=== PATIENT | male | born 1970 | race Caucasian/White ===

== ENCOUNTER 2017-03-23 11:23 | Inpatient (IN) | payer OTHER ==
[2017-03-22 14:59] VITALS: Ht 180.3 cm; Wt 104.2 kg
[~2017-03-23] VITALS: Ht 180.3 cm; Wt 104.2 kg
[2017-03-23] VITALS (12 sets, daily range): BP systolic 102–142; BP diastolic 52–81; PULSE 75–94; RESP 11–17
[~2017-03-23 11:23] MED LIST: AMLO-147 PO; ARIP15TA2 PO; CEFAZOLIN 1 GM INJ ONE; DULO60CA6 PO; OXYC15TA PO; PRAV40TA76 PO; TRAZ300T15 PO
[2017-03-23] MEDS ORDERED: GELATIN SIZE 100 SPONGE ONE ×2 (13:18→17:46)
[2017-03-23] MEDS ORDERED: THROMBIN 5000 UNIT VIAL ONE ×3 (13:18→17:46)
[2017-03-23] MEDS ORDERED: CEFAZOLIN 1 GM INJ ONE (13:18)
[2017-03-23] MEDS ORDERED: HEPARIN 1000 UNITS/ML 10 ML INJ ONE (13:19)
[2017-03-23] MEDS: NICOTINE (21 MG/24 HR) PATCH TRANSDERM SCH (14:43)
--- NOTE | 2017-03-23 14:45 | HPN ---
Date/Time of Note Date/Time of Note DATE: 03/23/17 TIME: 14:43 Interval H&P Admission Note Pt. seen H&P reviewed: No system changes Neurosurgery Preop Note Extensive d/w patient at bedside about all available options including surgery vs no surgery. Overall risk/complications 3-5% overall as thoroughly discussed in my preop consent form. All questions answered and no guarantees given. pt has agreed to Staged surgery . Anterior approach L3-S1 today with Posterior fixation to follow in few days. Per OR, next available time would be Sunday at 0730. WILY ANGEL MD Mar 23, 2017 14:45
[2017-03-23] MEDS ORDERED: PROPOFOL 20 ML ONE (16:06)
[2017-03-23] MEDS ORDERED: LIDOCAINE 2% (SDV) 5 ML INJ ONE (16:06)
[2017-03-23] MEDS ORDERED: GLYCOPYRROLATE 0.4 MG INJ ONE ×3 (16:06→18:27)
[2017-03-23] MEDS ORDERED: NEOSTIGMINE 3 MG/3 ML SYRINGE ONE ×2 (16:06→18:27)
[2017-03-23] MEDS ORDERED: SUCCINYLCHOLINE CHLORIDE 100 MG/5 ML SYG IV ONE (16:06)
[2017-03-23] MEDS ORDERED: ROCURONIUM 50 MG INJ ONE ×3 (16:06→17:21)
[2017-03-23] MEDS ORDERED: MEPERIDINE 100 MG INJ ONE (16:06)
[2017-03-23] MEDS ORDERED: LABETALOL HCL 20MG INJ ONE (17:00)
[2017-03-23] MEDS ORDERED: FUROSEMIDE 20 MG INJ ONE (17:00)
[2017-03-23] MEDS ORDERED: hydrALAzine 20 MG INJ ONE (17:04)
[2017-03-23] MEDS ORDERED: NACL 0.9% 3 ML SYG IV SCH (17:30)
[2017-03-23] MEDS: NS + KCL 20 MEQ 1,000 ML IV SCH (17:30)
[2017-03-23] MEDS ORDERED: NALOXONE (0.4 MG/ML) INJ IV PRN (17:30)
--- NOTE | 2017-03-23 19:25 | OPPN ---
Date/Time of Note Date/Time of Note DATE: 03/23/17 TIME: 19:20 Operative Report Preoperative Diagnosis Mechanical LBP, LE radiculopathy Postoperative Diagnosis same Operation/Procedure Performed Anterior Lumbar Interbody decompression and fusion Surgeon see signature line market research assistant Jocelyn Second assist: GRETA SOLER NP Anesthesia: general Estimated blood loss: 150 - 200 ml's Transfusion Required none Specimen Disc and bone Grafts/Implants Nuvasive PEEK cages, screws, allograft bone Complications none WILY ANGEL MD Mar 23, 2017 19:25
[2017-03-23] MEDS ORDERED: DIPHENHYDRAMINE 50 MG INJ IV PRN (19:30)
[2017-03-23] MEDS ORDERED: LABETALOL HCL 20MG INJ IV PRN (19:30)
[2017-03-23] MEDS ORDERED: METOCLOPRAMIDE 10 MG INJ IV PRN (19:30)
[2017-03-23] MEDS ORDERED: morphine 10 MG INJ IV PRN (19:30)
[2017-03-23] MEDS ORDERED: morphine 2 MG INJ IV PRN (19:30)
[2017-03-23] MEDS ORDERED: ONDANSETRON 4 MG INJ IV PRN (19:30)
[2017-03-23] MEDS ORDERED: MEPERIDINE 25 MG INJ IV PRN (19:30)
[2017-03-23] MEDS ORDERED: FENTAnyl 50 MCG/ML VIAL IV PRN ×2 (19:30)
[2017-03-23] MEDS ORDERED: morphine 4 MG/ML VIAL IV PRN (19:30)
[2017-03-23] MEDS ORDERED: hydrALAzine 20 MG INJ IV PRN (19:30)
[2017-03-23] MEDS ORDERED: FENTAnyl 50 MCG/ML VIAL ONE ×2 (19:44→20:00)
[2017-03-23] MEDS: FENTAnyl 50 MCG/ML VIAL IV PRN ×4 (20:07→21:02)
[2017-03-23] MEDS: HYDROmorphONE 0.2 MG/ML PCA IV SCH (20:35)
[2017-03-23] MEDS: CEFAZOLIN 1 GM/50 ML (PMX) 50 ML IVPB SCH (21:06)
[2017-03-23 23:09] LABS: INR 0.99; PROTIME 13.2 Sec (11.9-14.9)
[2017-03-24] VITALS (37 sets, daily range): BP systolic 88–174; BP diastolic 45–81; PULSE 68–107; RESP 8–22
[2017-03-24] MEDS: NS + KCL 20 MEQ 1,000 ML IV SCH ×3 (03:30→21:48)
[2017-03-24] MEDS: HYDROmorphONE 0.2 MG/ML PCA IV SCH ×2 (03:59→21:46)
[2017-03-24] MEDS: traZODone 100 MG TAB PO SCH ×2 (04:08→21:47)
[2017-03-24 05:18] LABS: HEMATOCRIT 39.5 % (42.0-52.0); HEMOGLOBIN 12.9 g/dl (14.0-18.0)
[2017-03-24 05:52] LABS: CALCIUM 8.6 mg/dl (8.4-10.2); CREATININE 0.9 mg/dl (0.61-1.24); POTASSIUM 3.7 mmol/L (3.5-5.1)
[2017-03-24] MEDS: CEFAZOLIN 1 GM/50 ML (PMX) 50 ML IVPB SCH ×3 (06:01→21:47)
--- NOTE | 2017-03-24 06:52 | OPR ---
DATE OF OPERATION: PREOPERATIVE DIAGNOSIS: Degenerative disk disease, lumbosacral spine. POSTOPERATIVE DIAGNOSIS: Degenerative disk disease, lumbosacral spine. PROCEDURE: 1. Anterior retroperitoneal exposure and interbody fusion L3 to L4. 2. Anterior retroperitoneal exposure and interbody fusion L4 to L5. 3. Anterior retroperitoneal exposure interbody fusion L5 to S1. 4. Unusually difficult operation secondary to morbid obesity. SURGEON: Robel Bhatti MD. CO-SURGEON: Bambi Colorado MD. ANESTHESIA: General. ESTIMATED BLOOD LOSS: 150 mL. CONSENT: Risks, benefits, complications, alternative therapies explained to the patient and the [facility], consent obtained. OPERATIVE TECHNIQUE: The patient was placed in supine position, prepped and draped in usual sterile fashion, 1% lidocaine was used throughout the operation for local anesthesia. A 12-cm incision was made left lower quadrant, oblique fashion below the umbilicus. Incision was taken down to the subc utaneous tissue which was then opened using electrocautery. Left anterior rectus sheath was opened in the direction of the wound. Posterior rectus sheath was opened superiorly about 4 cm. Retroperi toneal space was entered. The patient appeared to be very obese which added at least 45 minutes to the duration of the operation and complexity of the operation. Bookwalter retractor was placed retr acting the bowel contents to the right, left rectus muscle to left. We ligated the middle sacral ar minid and vein, left iliolumbar artery and vein and left lowest segmental artery and vein on the left side. Exposure for L4 to L5 and L3 to L4 was obtained by retracting the left iliac artery and vein and vena cava and aorta to the right, exposure for 5 and 1 was obtained between the right and left common iliac artery and vein. After all the diskectomy and the placement of the new cage was done, x-rays were satisfactory read by Dr. Colorado. No evidence of any bleeding was noted. Needle counts a nd sponge counts count was correct. The posterior rectus sheath was closed using an 0 Vicryl suture in running fashion. The anterior rectus sheath was closed using #1 Vicryl suture in running fashio n with interrupted sutures in the middle. The wound was irrigated and closed in 2 layers of 2-0 Munir ryl suture for subQ and Steri-Strips for the skin. The patient tolerated procedure well. Dictated By: ROBEL BHATTI MD FM/NTS Conf#: [id number] DID#: [id number] CC: BAMBI COLOARDO MD;*EndCC*
[2017-03-24] MEDS ORDERED: METOPROLOL 5 MG INJ ONE (07:00)
[2017-03-24] MEDS ORDERED: CEFAZOLIN 1 GM INJ ONE (07:00)
[2017-03-24] MEDS ORDERED: ROPIVACAINE 0.5 % 30 ML VIAL ONE ×2 (07:09→08:20)
[2017-03-24] MEDS ORDERED: GELATIN SIZE 100 SPONGE ONE (07:09)
[2017-03-24] MEDS ORDERED: THROMBIN 5000 UNIT VIAL ONE (07:10)
[2017-03-24] MEDS ORDERED: POLYMYXIN/BACITRACIN 1L IRRIG ONE (07:12)
[2017-03-24] MEDS: NICOTINE (21 MG/24 HR) PATCH TRANSDERM SCH (07:36)
[2017-03-24] MEDS ORDERED: PROPOFOL 20 ML ONE ×2 (07:38→08:53)
[2017-03-24] MEDS ORDERED: HYDROmorphONE 2 MG/ML SYG ONE (07:38)
[2017-03-24] MEDS ORDERED: ONDANSETRON 4 MG INJ ONE (07:38)
[2017-03-24] MEDS ORDERED: ROCURONIUM 50 MG INJ ONE ×2 (07:38→08:46)
[2017-03-24] MEDS ORDERED: METOCLOPRAMIDE 10 MG INJ ONE (07:38)
[2017-03-24] MEDS ORDERED: MIDAZOLAM 1 MG/ML 2 ML INJ ONE (07:39)
--- NOTE | 2017-03-24 07:40 | HPN ---
Date/Time of Note Date/Time of Note DATE: 03/24/17 TIME: 07:37 Interval H&P Admission Note Neurosurgery Preop Note S: s/p ALIF L3-S1. POD #1 Pt did well overnight w/o new weakness and improved LE radiculopathy surgical site CDI Extensive d/w patient about posterior fixation and possible foraminotomies to L4 -5 level. All risk/complications 3-5% overall thoroughly discussed. All questions answered and no guarantees given. Dispo: ICU post WILY ANGEL MD Mar 24, 2017 07:40
--- NOTE | 2017-03-24 08:33 | RADRPT ---
PROCEDURE: Lumbar spine x-ray and fluoroscopy CLINICAL INDICATION: Lumbar spine surgical procedure TECHNIQUE: 11 intraoperative x-ray views of the lumbar spine are available for review. COMPARISON: None available FINDINGS: Postsurgical changes of the lumbar spine are identified. Intraoperative imaging was performed for l ocalization during the procedure in progress for anterior lumbar spine fusion at L3-S1 by Dr. Colorado. The total fluoroscopy time was 6.9 seconds. IMPRESSION: 1. Intraoperative x-rays for localization during lumbar spinal surgical procedure. RPTAT: AA .Paula Hogan MD, Date Time Electronically viewed and signed by .Paula Hogan MD, MD on 03/24/2017 08:33 .N/
[2017-03-24] MEDS ORDERED: LIDOCAINE 2% (SDV) 5 ML INJ ONE (08:39)
[2017-03-24] MEDS ORDERED: metroNIDAZOLE 500 MG/NS (PMX) 100 ML IVPB ONE (08:49)
[2017-03-24] MEDS ORDERED: GLYCOPYRROLATE 0.4 MG INJ ONE (09:21)
[2017-03-24] MEDS ORDERED: NEOSTIGMINE 3 MG/3 ML SYRINGE ONE (09:21)
--- NOTE | 2017-03-24 09:25 | RADRPT ---
PROCEDURE: CT scan of the lumbar spine without intravenous contrast. CLINICAL INDICATION: Back pain, postoperative examination from lumbar fusion. TECHNIQUE: Routine CT scan of the lumbar spine was performed without intravenous contrast on a hig h-resolution multi detector scanner. One or more of the following dose reduction techniques were use d: Automated exposure control; Adjustment of the mA and/or kV according to patient size; Use of iter ative reconstruction technique. CTDI = 38 mGy. DLP = 1310 mGy-cm. DICOM images are available. COMPARISON: ALLYSSA HERNANDEZ 03/23/2017 FINDINGS: Alignment: Postoperative changes from anterior lumbar fusion with interbody spacer is present L3-L4 , L4-L5, L5-S1 with ventral fixation screws. Small amount of epidural air is present consistent wit h recent surgery. Vertebrae: Vertebral body height is maintained throughout. Vertebral body mineralization is within normal limits. No significant endplate signal changes are seen. Examination of the individual levels demonstrates: L1-L2: Normal disc height without definite focal disc protrusion. Normal appearance of the facets. Central canal and neural foramen are patent. L2-L3: Disc height is preserved with 1.5 mm diffuse disc bulge. Normal appearance of the facets. Ce ntral canal is patent. Mild stenosis of both neural foramen. L3-L4: Disc height is preserved with approximately 1 mm diffuse disc bulge. Facets are within normal limits. Central canal is patent. Mild stenosis of both neural foramen. L4-L5: Normal disc height. Disc is not well visualized dorsally due to apparent postoperative neri es. Osseous central canal appears patent. Moderate bilateral facet arthropathy. Mild right and prob able moderate left neural foraminal stenosis. L5-S1: Normal disc height. 0.5 mm broad-based dorsal disc protrusion. Central canal is patent. Mini mal bilateral facet arthropathy. Both neural foramen are patent. Paraspinous soft tissues: Within normal limits. Visualized abdomen: Small amount of postoperative retroperitoneal air is present. Munguia catheter pr esent within the urinary bladder. IMPRESSION: Status post anterior lumbar fusion L3-L4, L4-L5, L5-S1. Small amounts of air in the retroperitoneal space and epidural space compatible with recent surgery. Central canal contents and disc are not well visualized at the L4-L5 level. If clinical concern for epidural hematoma MRI MRI of the lumbar spine with and without contrast can be performed for further evaluation. RPTAT: AADD .Gino Manzo MD, MD Date Time Electronically viewed and signed by .Gino Manzo MD, MD on 03/24/2017 09:25 .B/
--- NOTE | 2017-03-24 09:44 | OPPN ---
Date/Time of Note Date/Time of Note DATE: 03/24/17 TIME: 09:43 Operative Report Preoperative Diagnosis Mechanical LBP Multi DDD Postoperative Diagnosis same Operation/Procedure Performed Posterior L3-S1 ISF Placement. Surgeon see signature line rehabilitation assistant PAULA Ibarra, ACNP-BC Anesthesia: general Estimated blood loss: 50 - 100 ml's Transfusion Required none Specimen none Grafts/Implants none Complications none WILY ANGEL MD Mar 24, 2017 09:44
[2017-03-24] MEDS ORDERED: LABETALOL HCL 20MG INJ ONE (09:56)
[2017-03-24] MEDS: HYDROmorphONE 1 MG/ML SYG IV PRN ×6 (11:00→21:47)
--- NOTE | 2017-03-24 13:42 | RADRPT ---
PROCEDURE: Intraoperative imaging of the lumbar spine with fluoroscopy. CLINICAL INDICATION: Intraoperative imaging for localization purposes. Back pain TECHNIQUE: Images were obtained in the operating room with an image intensifier. No radiologist w as in attendance. Fluoroscopy time: 13.4 seconds Saved images: 3 COMPARISON: No prior study is available for comparison. FINDINGS: Intraoperative images for localization purposes. IMPRESSION: Intraoperative imaging for localization purposes Please see procedure report. RPTAT: AADD .Gino Manzo MD, MD Date Time Electronically viewed and signed by .Gino Manzo MD, on 03/24/2017 13:42 .B/
--- NOTE | 2017-03-24 17:41 | RADRPT ---
PROCEDURE: CT Lumbar Spine Without Contrast CLINICAL INDICATION: Postop fusion TECHNIQUE: Axial images were obtained of the lumbar spine with coronal and sagittal reconstruction s. No intravenous contrast was administered.DICOM images are available. CTDI 38 mGy, DLP 1204 mGy-cm One or more of the following dose reduction techniques were used: Automated exposure control Adjustment of the mA and/or kV according to patient size. Use of iterative reconstruction technique. COMPARISON: 03/23/2017 FINDINGS: Again noted are postsurgical changes of anterior / posterior fusion from L3-S1 with posterior inters pinous fusion devices, interbody grafts, and ventral vertebral screws. Vertebral body heights are un changed. Alignment is unchanged. No acute fractures are present. There is decreased gas within the epidural space within the lower lumbar spine from the prior study. There are small foci of gas within the posterior paraspinal musculature and soft tissues at the leve l of L2-L3 from recent postsurgical change. A new drain is also visualized extending into the soft t issues at the level of the sacrum into the paraspinal soft tissues on the left, terminating at the l evel of L3-L4 just posterior to the lamina. Central canal contents are limited evaluation due to the metallic artifact on the axial images. No abnormal fluid collections are visualized within the para spinal soft tissues. There is also gas and surgical clips within the retroperitoneal region extendin g into the left pelvis from recent postsurgical change without significant change compared to the pr ior study. T12-L1: Normal disc height with small Schmorl's nodes. No central canal or neural foramen narrowing. L1-L2: Normal disc height. No central canal or neural foraminal narrowing. L2-L3: Normal disc height with a minimal annular bulge and mild congenital narrowing of the central canal. Mild bilateral neural foraminal narrowing. L3-L4: There is an interbody graft with screws traversing across the anterior L3/L4 vertebral eden s. Mild to moderate central canal narrowing although the canal is limited in evaluation on the axial images due to streak artifact from the hardware. Mild bilateral neural foraminal narrowing. Intact posterior interspinous fusion device. L4-L5: Interbody graft with screws traversing across the anterior L4/L5 vertebral bodies. About 4 m m anterolisthesis with moderate central canal narrowing and slight prominence of the posterior epidu ral fat. Moderate left and mild to moderate right neural foraminal narrowing. Intact posterior inter spinous fusion device. Moderate to severe left and moderate right facet arthropathy. L5-S1: Interbody graft with screws traversing across the anterior L5/S1 vertebral bodies. Mild to m oderate central canal narrowing. Mild to moderate left and mild right neural foraminal narrowing. Mi ld bilateral facet arthropathy. Intact posterior interspinous fusion device. RPTAT: ZZ IMPRESSION: 1. New drain extending into the left paraspinal soft tissues at the level of the lower lumbar spine, terminating at the level of L3-L4 posterior to the lamina. 2. Decreased gas within the epidural space within the lower lumbar spine. Small amount of gas within the posterior paraspinal soft tissues at the level of L2-L3 from recent postsurgical change. Simila r appearance of the gas within the retroperitoneal space and left pelvis. 3. Intact L3-S1 anterior/posterior fusion. Mild to moderate/moderate central canal narrowing, more p rominent at the level of L4-L5 with grade 1 anterolisthesis. 4. Remainder of the examination is unchanged. .Lisa Woodward MD, MD Date Time Electronically viewed and signed by .Lias Woodward MD, on 03/24/2017 17:41 .T/
[2017-03-24] MEDS ORDERED: KETOROLAC 30 MG INJ IV PRN (18:00)
[2017-03-24] MEDS: KETOROLAC 30 MG INJ IM PRN ×2 (18:10→23:55)
--- NOTE | 2017-03-24 18:24 | HP ---
Date/Time of Note Date/Time of Note DATE: 03/24/17 TIME: 18:15 Assessment/Plan Lines/Catheters IV Catheter Type (from Nrsg): Peripheral IV Central line still needed: Yes Urinary Cath still in place: Yes Reason Cath still needed: urinary retention Assessment/Plan Assessment/Plan -Degenerative disk disease, lumbosacral spine. - Anterior retroperitoneal exposure and interbody fusion L3 -L4; Anterior retroperitoneal exposure and interbody fusion L4 -L5 ; Anterior retroperitoneal exposure interbody fusion L5 -S1 - per neurosx - pain control - Dilaudid POULTRY CLEANER - morbid obesity. -HTN - Hypotension - Smoker - smoking cessation Total critical care time spent is 45 mins. Further recommendations based on clinical course. Plan of care discussed with Dr. Barrios. HPI/ROS Admit Date/Time Admit Date/Time Mar 23, 2017 at 11:23 PMH/Family/Social Past Medical History Back Pain Depression Anxiety Medical History: hypertension Past Surgical History Past Surgical Hx: appendectomy Social History Alcohol Use: none Smoking Status: Current every day smoker Drug Use: none Exam/Review of Systems Vital Signs Vitals Vital Signs Date Time Temp Pulse Resp B/P Pulse Ox O2 Delivery O2 Flow Rate FiO2 03/24/17 16:00 90 03/24/17 16:00 Nasal Cannula 3.0 03/24/17 16:00 97.7 13 91/45 95 Intake and Output 03/23/17 03/23/17 03/24/17 15:00 23:00 07:00 Intake Total 900 ml 800 ml Output Total 260 ml 430 ml Balance 640 ml 370 ml Exam Constitutional: alert, other Respiratory: diminished breath sounds, normal air movement Gastrointestinal: soft, tender (left abdomen tenderness. Anterior dressing- wet with serousanginous fluid, DALTON noted) Musculoskeletal: nl extremities to inspection Extremities: normal pulses Neurological: nl mental status, nl speech, other (sp back surgery- pt refused to turn, per staff- some blood streaks noted on dressing.) Labs Result Diagram: 03/24/1743903/24/17439 Medications Medications Current Medications Nicotine 1 patch 1 patch DAILY TRANSDERM Last administered on 03/24/17t 07:36; Admin Dose 1 PATCH; Start 03/23/17 at 15:00 Cefazolin Sodium (Ancef 1 Gm/50 ml (Pmx)) 50 ml @ 100 mls/hr Q8 IVPB Last administered on 03/24/17 14:05; Admin Dose 100 MLS/HR; Start 03/23/17 at 22:00 ; Stop 03/24/17 at 22:29 Hydromorphone HCl (Dilaudid POULTRY CLEANER) Q4PCA IV Last administered on 03/24/17 03:59 ; Admin Dose 6 MG; Start 03/23/17 at 17:30 Naloxone HCl 0.2 mg 0.2 mg Q2M PRN IV RR 8 BREATHS/MIN OR LESS; Start 03/23/17 at 17:30 Potassium Chloride/Sodium Chloride (NS-KCl 20 Meq) 1,000 ml @ 100 mls/hr Q10H IV Last administered on 03/24/17 11:19; Admin Dose 100 MLS/HR; Start 03/23/17 at 17:30 Trazodone HCl (Desyrel) 300 mg HS PO Last administered on 03/24/17 04:08; Admin Dose 300 MG; Start 03/24/17 at 03:15 Hydromorphone HCl (Dilaudid) 1 mg Q2H PRN IV BREAKTHROUGH PAIN Last administered on 03/24/17 16:26; Admin Dose 1 MG; Start 03/24/17 at 11:00 Ketorolac Tromethamine (Toradol) 30 mg Q6H PRN IM PAIN Last administered on 18:10; Admin Dose 30 MG; Start 03/24/17 at 18:08; Stop 03/27/17 at 17:59 RUSS CHEN Mar 24, 2017 18:24
[2017-03-24] MEDS ORDERED: traZODone 100 MG TAB PO SCH (21:00)
[2017-03-25] VITALS (21 sets, daily range): BP systolic 94–150; BP diastolic 48–86; PULSE 95–111; RESP 9–22
[2017-03-25] MEDS: HYDROmorphONE 1 MG/ML SYG IV PRN ×11 (00:12→22:41)
[2017-03-25 04:56] LABS: ABNORMAL IP MESSAGE 1; BASOPHILS % 0.1 % (0.0-2.0); HEMATOCRIT 36.6 % (42.0-52.0); HEMOGLOBIN 11.7 g/dl (14.0-18.0); LYMPHOCYTES # 1.5 10^3/ul (0.8-2.9); LYMPHOCYTES % 10.9 % (15.0-51.0); MEAN CORPUSCULAR HEMOGLOBIN 26.4 pg (29.0-33.0); MEAN CORPUSCULAR VOLUME 82.6 fl (82.0-101.0); MEAN PLATELET VOLUME 10.5 fl (7.4-10.4); MONOCYTE # 1.5 10^3/ul (0.3-0.9); MONOCYTES % 10.9 % (0.0-11.0); NEUTROPHIL # 10.9 10^3/ul (1.6-7.5); NEUTROPHILS % 77.7 % (39.0-77.0); PLATELET COUNT 184 10^3/UL (140-415); POSITIVE DIFF @See below; RED BLOOD COUNT 4.43 10^6/ul (4.70-6.10); RED CELL DISTRIBUTION WIDTH 14.3 % (11.5-14.5); WHITE BLOOD COUNT 14.1 10^3/ul (4.8-10.8)
[2017-03-25 05:18] LABS: ALBUMIN/GLOBULIN RATIO 0.93; BILIRUBIN,INDIRECT 0.8 mg/dl (0-1.1); BILIRUBIN,TOTAL 0.8 mg/dl (0.2-1.3); CALCIUM 8.7 mg/dl (8.4-10.2); CREATININE 0.91 mg/dl (0.61-1.24); POTASSIUM 3.8 mmol/L (3.5-5.1); TOTAL PROTEIN 6.2 g/dl (6.1-8.1)
[2017-03-25] MEDS: KETOROLAC 30 MG INJ IM PRN ×3 (05:54→19:07)
[2017-03-25] MEDS: NS + KCL 20 MEQ 1,000 ML IV SCH (08:26)
[2017-03-25] MEDS: NICOTINE (21 MG/24 HR) PATCH TRANSDERM SCH (08:32)
--- NOTE | 2017-03-25 09:28 | PN ---
Date/Time of Note Date/Time of Note DATE: 03/25/17 TIME: 09:24 Assessment/Plan VTE Prophylaxis VTE Prophylaxis Intervention: SCD's Lines/Catheters IV Catheter Type (from Nrsg): Peripheral IV Central line still needed: No Urinary Cath still in place: No Assessment/Plan Chief Complaint/Hosp Course s/p ALIF L3-S1. POD #2 s/p posterior ISF L3-S1. POD #1 doing well JUAN DANIEL with moderate drainage denies LE radic Plan cont supportive care pt/ot with LSO brace x 6 weeks dc juan daniel drain in am then dc planning home Patient to obtain Narcotics/Pain meds from Pain management MD (Dr. 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 POD #1 S/P ALIF L3-S1 . POD #2 Denies LE radic pain Exam/Review of Systems Vital Signs Vitals Vital Signs Date Time Temp Pulse Resp B/P Pulse Ox O2 Delivery O2 Flow Rate FiO2 03/25/17 09:00 18 03/25/17 08:00 102 03/25/17 06:00 119/64 89 Nasal Cannula 03/25/17 04:00 98.3 03/25/17 02:25 2.0 Intake and Output 03/24/17 03/24/17 03/25/17 15:00 23:00 07:00 Intake Total 1470 ml 950 ml 700 ml Output Total 845 ml 700 ml 440 ml Balance 625 ml 250 ml 260 ml Exam Neurological: DINING ROOM CASHIER II-XII intact, DTR's symmetric, nl mental status, nl speech, nl strength, other (surgical site: CDI ) Results Result Diagram: 03/25/1739903/25/17 0400 Results 24 hrs Laboratory Tests Test 03/25/17 04:00 White Blood Count 14.1 H Red Blood Count 4.43 L Hemoglobin 11.7 L Hematocrit 36.6 L Mean Corpuscular Volume 82.6 Mean Corpuscular Hemoglobin 26.4 L Mean Corpuscular Hemoglobin Concent 32.0 Red Cell Distribution Width 14.3 Platelet Count 184 Mean Platelet Volume 10.5 H Neutrophils % 77.7 H Lymphocytes % 10.9 L Monocytes % 10.9 Eosinophils % 0.0 Basophils % 0.1 Nucleated Red Blood Cells % 0.0 Neutrophils # 10.9 H Lymphocytes # 1.5 Monocytes # 1.5 H Eosinophils # 0.0 Basophils # 0.0 Nucleated Red Blood Cells # 0.0 Sodium Level 140 Potassium Level 3.8 Chloride Level 107 Carbon Dioxide Level 26 Anion Gap 11 Blood Urea Nitrogen 11 Creatinine 0.91 Glucose Level 113 Calcium Level 8.7 Total Bilirubin 0.8 Direct Bilirubin 0.00 Indirect Bilirubin 0.8 Aspartate Amino Transf (AST/SGOT) 26 Alanine Aminotransferase (ALT/SGPT) 29 Alkaline Phosphatase 63 Total Protein 6.2 Albumin 3.0 L Globulin 3.20 Albumin/Globulin Ratio 0.93 Medications Medications Current Medications Nicotine (Nicoderm 21 Mg/ 24hr) 1 patch DAILY TRANSDERM Last administered on 08:32; Admin Dose 1 PATCH; Start 03/23/17 at 15:00 Hydromorphone HCl (Dilaudid BELL[employer] SERVICE CAPTAIN) Q4PCA IV Last administered on 03/24/17 21:46 ; Admin Dose 6 MG; Start 03/23/17 at 17:30 Naloxone HCl 0.2 mg 0.2 mg Q2M PRN IV RR 8 BREATHS/MIN OR LESS; Start 03/23/17 at 17:30 Potassium Chloride/Sodium Chloride (NS-KCl 20 Meq) 1,000 ml @ 100 mls/hr Q10H IV Last administered on 03/25/17 08:26; Admin Dose 100 MLS/HR; Start 03/23/17 at 17:30 Trazodone HCl (Desyrel) 300 mg HS PO Last administered on 03/24/17 21:47; Admin Dose 300 MG; Start 03/24/17 at 03:15 Hydromorphone HCl (Dilaudid) 1 mg Q2H PRN IV BREAKTHROUGH PAIN Last administered on 03/25/17 09:23; Admin Dose 1 MG; Start 03/24/17 at 11:00 Ketorolac Tromethamine (Toradol) 30 mg Q6H PRN IM PAIN Last administered on 05:54; Admin Dose 30 MG; Start 03/24/17 at 18:08; Stop 03/27/17 at 17:59 GRETA SOLER NP Mar 25, 2017 09:28
[2017-03-25] MEDS: HYDROCODONE/APAP (10/325) TAB PO PRN ×3 (10:19→21:08)
--- NOTE | 2017-03-25 17:16 | PN ---
Date/Time of Note Date/Time of Note DATE: 03/25/17 TIME: 17:12 Assessment/Plan Lines/Catheters IV Catheter Type (from Nrsg): Peripheral IV Urinary Cath still in place: No Assessment/Plan Assessment/Plan -Degenerative disk disease, lumbosacral spine. - Anterior retroperitoneal exposure and interbody fusion L3 -L4; Anterior retroperitoneal exposure and interbody fusion L4 -L5 ; Anterior retroperitoneal exposure interbody fusion L5 -S1 - per neurosx - pain control - abd dressing- dry/intact - morbid obesity. -HTN - Hypotension - Smoker - smoking cessation Tonny Barrios/ staff Subjective 24 Hr Interval Summary Free Text/Dictation nad, afebrile - pain control is better - famaily at bed side - abd dressing- dry/intact Respiratory: no complaints Cardiovascular: no complaints Gastrointestinal: no complaints Genitourinary: no complaints Musculoskeletal: back pain Exam/Review of Systems Vital Signs Vitals Vital Signs Date Time Temp Pulse Resp B/P Pulse Ox O2 Delivery O2 Flow Rate FiO2 03/25/17 14:25 98.4 98 18 138/62 90 Room Air 03/25/17 02:25 2.0 Intake and Output 03/24/17 03/24/17 03/25/17 15:00 23:00 07:00 Intake Total 1470 ml 950 ml 800 ml Output Total 845 ml 700 ml 500 ml Balance 625 ml 250 ml 300 ml Results Result Diagram: 03/25/17 0400 03/25/17 0400 Results 24 hrs Laboratory Tests Test 03/25/17 04:00 White Blood Count 14.1 H Red Blood Count 4.43 L Hemoglobin 11.7 L Hematocrit 36.6 L Mean Corpuscular Volume 82.6 Mean Corpuscular Hemoglobin 26.4 L Mean Corpuscular Hemoglobin Concent 32.0 Red Cell Distribution Width 14.3 Platelet Count 184 Mean Platelet Volume 10.5 H Neutrophils % 77.7 H Lymphocytes % 10.9 L Monocytes % 10.9 Eosinophils % 0.0 Basophils % 0.1 Nucleated Red Blood Cells % 0.0 Neutrophils # 10.9 H Lymphocytes # 1.5 Monocytes # 1.5 H Eosinophils # 0.0 Basophils # 0.0 Nucleated Red Blood Cells # 0.0 Sodium Level 140 Potassium Level 3.8 Chloride Level 107 Carbon Dioxide Level 26 Anion Gap 11 Blood Urea Nitrogen 11 Creatinine 0.91 Glucose Level 113 Calcium Level 8.7 Total Bilirubin 0.8 Direct Bilirubin 0.00 Indirect Bilirubin 0.8 Aspartate Amino Transf (AST/SGOT) 26 Alanine Aminotransferase (ALT/SGPT) 29 Alkaline Phosphatase 63 Total Protein 6.2 Albumin 3.0 L Globulin 3.20 Albumin/Globulin Ratio 0.93 Medications Medications Current Medications Nicotine (Nicoderm 21 Mg/ 24hr) 1 patch DAILY TRANSDERM Last administered on 08:32; Admin Dose 1 PATCH; Start 03/23/17 at 15:00 Naloxone HCl (Narcan) 0.2 mg Q2M PRN IV RR 8 BREATHS/MIN OR LESS; Start at 17:30 Trazodone HCl (Desyrel) 300 mg HS PO Last administered on 03/24/17 21:47; Admin Dose 300 MG; Start 03/24/17 at 03:15 Hydromorphone HCl (Dilaudid) 1 mg Q2H PRN IV PAIN LEVEL 7-10 Last administered on 03/25/17 15:38; Admin Dose 1 MG; Start 03/24/17 at 11:00 Ketorolac Tromethamine (Toradol) 30 mg Q6H PRN IM PAIN Last administered on 11:54; Admin Dose 30 MG; Start 03/24/17 at 18:08; Stop 03/27/17 at 17:59 Acetaminophen/ Hydrocodone Bitart ([place] (10/325)) 1 tab Q4H PRN PO PAIN LEVEL 1-5 Last administered on 03/25/17 14:59; Admin Dose 1 TAB; Start 03/25/17 at 09 :30 RUSS CHEN Mar 25, 2017 17:16
[2017-03-25] MEDS: traZODone 100 MG TAB PO SCH (20:11)
[2017-03-26] VITALS: BP 117/57; RESP 16
[2017-03-26] MEDS: HYDROmorphONE 1 MG/ML SYG IV PRN ×9 (03:08→20:34)
[2017-03-26 03:46] VITALS: BP 144/66; RESP 16
[2017-03-26 05:29] LABS: BASOPHILS % 0.1 % (0.0-2.0); EOSINOPHILS % 0.2 % (0.0-7.0); HEMATOCRIT 35.3 % (42.0-52.0); HEMOGLOBIN 11.5 g/dl (14.0-18.0); LYMPHOCYTES # 1.1 10^3/ul (0.8-2.9); LYMPHOCYTES % 8.5 % (15.0-51.0); MEAN CORPUSCULAR HEMOGLOBIN 26.7 pg (29.0-33.0); MEAN CORPUSCULAR HGB CONC 32.6 g/dl (32.0-37.0); MEAN CORPUSCULAR VOLUME 81.9 fl (82.0-101.0); MEAN PLATELET VOLUME 10.7 fl (7.4-10.4); MONOCYTE # 1.2 10^3/ul (0.3-0.9); MONOCYTES % 9.3 % (0.0-11.0); NEUTROPHIL # 10.6 10^3/ul (1.6-7.5); NEUTROPHILS % 81.4 % (39.0-77.0); PLATELET COUNT 186 10^3/UL (140-415); RED BLOOD COUNT 4.31 10^6/ul (4.70-6.10); RED CELL DISTRIBUTION WIDTH 14.2 % (11.5-14.5); WHITE BLOOD COUNT 13.1 10^3/ul (4.8-10.8)
[2017-03-26 06:05] LABS: ALBUMIN 3.2 g/dl (3.3-4.9); ALBUMIN/GLOBULIN RATIO 0.88; BILIRUBIN,INDIRECT 0.5 mg/dl (0-1.1); BILIRUBIN,TOTAL 0.5 mg/dl (0.2-1.3); CALCIUM 8.9 mg/dl (8.4-10.2); CREATININE 0.88 mg/dl (0.61-1.24); POTASSIUM 3.7 mmol/L (3.5-5.1); TOTAL PROTEIN 6.8 g/dl (6.1-8.1)
[2017-03-26 07:18] VITALS: BP_SYST 122; BP_SYST 174; BP_DIAS 92; RESP 19
[2017-03-26] MEDS: NICOTINE (21 MG/24 HR) PATCH TRANSDERM SCH (09:25)
[2017-03-26] MEDS: HYDROCODONE/APAP (10/325) TAB PO PRN ×2 (10:27→15:22)
--- NOTE | 2017-03-26 11:52 | PN ---
Date/Time of Note Date/Time of Note DATE: 03/26/17 TIME: 11:48 Assessment/Plan VTE Prophylaxis VTE Prophylaxis Intervention: SCD's Lines/Catheters IV Catheter Type (from Nrsg): Saline Lock [place] line still needed: No Urinary Cath still in place: No Assessment/Plan Chief Complaint/Hosp Course s/p ALIF L3-S1. POD #3 s/p posterior ISF L3-S1. POD #2 doing well JUAN DANIEL with min. drainage denies LE radic ambulating with pt/ot Plan cont supportive care pt/ot with LSO brace x 6 weeks dc juan daniel drain IS x 10 WA DC in am if stable overnight Follow up in 2 weeks Okay to shower in 2 days Problems: Subjective 24 Hr Interval Summary Free Text/Dictation S: NAD JUAN DANIEL with minimal drainage Ambulating with pt/ot no new weakness and no further LE radic pain Exam/Review of Systems Vital Signs Vitals Vital Signs Date Time Temp Pulse Resp B/P Pulse Ox O2 Delivery O2 Flow Rate FiO2 03/26/17 07:18 98.0 75 19 122/92 98 03/25/17 14:25 Room Air 03/25/17 02:25 2.0 Intake and Output 03/25/17 03/25/17 03/26/17 14:59 22:59 06:59 Intake Total 740 ml 760 ml 400 ml Output Total 250 ml 335 ml 320 ml Balance 490 ml 425 ml 80 ml Exam Neurological: other (MS: AAOX4 CN: PERRL M: FC x 4, 5/5 strength , no focal def. ) Results Result Diagram: 03/26/17 0450 03/26/17 0450 Results 24 hrs Laboratory Tests Test 03/26/17 04:50 White Blood Count 13.1 H Red Blood Count 4.31 L Hemoglobin 11.5 L Hematocrit 35.3 L Mean Corpuscular Volume 81.9 L Mean Corpuscular Hemoglobin 26.7 L Mean Corpuscular Hemoglobin Concent 32.6 Red Cell Distribution Width 14.2 Platelet Count 186 Mean Platelet Volume 10.7 H Neutrophils % 81.4 H Lymphocytes % 8.5 L Monocytes % 9.3 Eosinophils % 0.2 Basophils % 0.1 Nucleated Red Blood Cells % 0.0 Neutrophils # 10.6 H Lymphocytes # 1.1 Monocytes # 1.2 H Eosinophils # 0.0 Basophils # 0.0 Nucleated Red Blood Cells # 0.0 Sodium Level 142 Potassium Level 3.7 Chloride Level 106 Carbon Dioxide Level 26 Anion Gap 14 Blood Urea Nitrogen 14 Creatinine 0.88 Glucose Level 112 Calcium Level 8.9 Total Bilirubin 0.5 Direct Bilirubin 0.00 Indirect Bilirubin 0.5 Aspartate Amino Transf (AST/SGOT) 26 Alanine Aminotransferase (ALT/SGPT) 28 Alkaline Phosphatase 73 Total Protein 6.8 Albumin 3.2 L Globulin 3.60 H Albumin/Globulin Ratio 0.88 Medications Medications Current Medications Nicotine (Nicoderm 21 Mg/ 24hr) 1 patch DAILY TRANSDERM Last administered on 09:25; Admin Dose 1 PATCH; Start 03/23/17 at 15:00 Naloxone HCl (Narcan) 0.2 mg Q2M PRN IV RR 8 BREATHS/MIN OR LESS; Start at 17:30 Trazodone HCl (Desyrel) 300 mg HS PO Last administered on 03/25/17 20:11; Admin Dose 300 MG; Start 03/24/17 at 03:15 Hydromorphone HCl (Dilaudid) 1 mg Q2H PRN IV PAIN LEVEL 7-10 Last administered on 03/26/17 11:16; Admin Dose 1 MG; Start 03/24/17 at 11:00 Ketorolac Tromethamine (Toradol) 30 mg Q6H PRN IM PAIN Last administered on 19:07; Admin Dose 30 MG; Start 03/24/17 at 18:08; Stop 03/27/17 at 17:59 Acetaminophen/ Hydrocodone Bitart ([place] (10/325)) 1 tab Q4H PRN PO PAIN LEVEL 1-5 Last administered on 03/26/17 10:27; Admin Dose 1 TAB; Start 03/25/17 at 09 :30 GRETA SOLER NP Mar 26, 2017 11:52
[2017-03-26] MEDS: MAGNESIUM HYDROXIDE 30ML CUP PO PRN (13:48)
--- NOTE | 2017-03-26 14:41 | PN ---
Date/Time of Note Date/Time of Note DATE: 03/26/17 TIME: 14:28 Assessment/Plan VTE Prophylaxis VTE Prophylaxis Intervention: SCD's Lines/Catheters IV Catheter Type (from Nrs): Saline Lock Urinary Cath still in place: No Assessment/Plan Chief Complaint/Hosp Course Patient is able to walk in the hallway with physical therapy, pain is well controlled. Patient complains of constipation, started on bowel regimen. Assessment/Plan -Degenerative disk disease of lumbosacral spine. S/p anterior retroperitoneal exposure and interbody fusion L3-S1 Dr. Bhatti on 03/23. S/p Posterior L3-S1 ISF Placement by Dr. [place] on 03/24. Continue Anderson and Dilaudid for pain. Continue physical therapy. -Hypertension, patient is currently normotensive -Obesity with BMI of 32 -Smoker, cessation is strongly advised Further recommendations based on clinical course. Plan of care discussed with Dr. Barrios Problems: Exam/Review of Systems Vital Signs Vitals Vital Signs Date Time Temp Pulse Resp B/P Pulse Ox O2 Delivery O2 Flow Rate FiO2 03/26/17 07:18 98.0 75 19 122/92 98 03/25/17 14:25 Room Air 03/25/17 02:25 2.0 Intake and Output 03/25/17 03/25/17 03/26/17 15:00 23:00 07:00 Intake Total 640 ml 760 ml 400 ml Output Total 190 ml 335 ml 320 ml Balance 450 ml 425 ml 80 ml Exam Constitutional: alert, oriented Head: normocephalic Neck: supple Cardiovascular: nl pulses Gastrointestinal: non-tender, soft Musculoskeletal: other (Status post surgery) Extremities: normal pulses Neurological: nl mental status Skin: other (Abdominal surgical incision with intact dressing, lower back surgical incision with intact dressing) Results Result Diagram: 03/26/17 0450 03/26/17 0450 Results 24 hrs Laboratory Tests Test 03/26/17 04:50 White Blood Count 13.1 H Red Blood Count 4.31 L Hemoglobin 11.5 L Hematocrit 35.3 L Mean Corpuscular Volume 81.9 L Mean Corpuscular Hemoglobin 26.7 L Mean Corpuscular Hemoglobin Concent 32.6 Red Cell Distribution Width 14.2 Platelet Count 186 Mean Platelet Volume 10.7 H Neutrophils % 81.4 H Lymphocytes % 8.5 L Monocytes % 9.3 Eosinophils % 0.2 Basophils % 0.1 Nucleated Red Blood Cells % 0.0 Neutrophils # 10.6 H Lymphocytes # 1.1 Monocytes # 1.2 H Eosinophils # 0.0 Basophils # 0.0 Nucleated Red Blood Cells # 0.0 Sodium Level 142 Potassium Level 3.7 Chloride Level 106 Carbon Dioxide Level 26 Anion Gap 14 Blood Urea Nitrogen 14 Creatinine 0.88 Glucose Level 112 Calcium Level 8.9 Total Bilirubin 0.5 Direct Bilirubin 0.00 Indirect Bilirubin 0.5 Aspartate Amino Transf (AST/SGOT) 26 Alanine Aminotransferase (ALT/SGPT) 28 Alkaline Phosphatase 73 Total Protein 6.8 Albumin 3.2 L Globulin 3.60 H Albumin/Globulin Ratio 0.88 Medications Medications Current Medications Nicotine (Nicoderm 21 Mg/ 24hr) 1 patch DAILY TRANSDERM Last administered on 09:25; Admin Dose 1 PATCH; Start 03/23/17 at 15:00 Naloxone HCl (Narcan) 0.2 mg Q2M PRN IV RR 8 BREATHS/MIN OR LESS; Start at 17:30 Trazodone HCl (Desyrel) 300 mg HS PO Last administered on 03/25/17 20:11; Admin Dose 300 MG; Start 03/24/17 at 03:15 Hydromorphone HCl (Dilaudid) 1 mg Q2H PRN IV PAIN LEVEL 7-10 Last administered on 03/26/17 13:48; Admin Dose 1 MG; Start 03/24/17 at 11:00 Ketorolac Tromethamine (Toradol) 30 mg Q6H PRN IM PAIN Last administered on 19:07; Admin Dose 30 MG; Start 03/24/17 at 18:08; Stop 03/27/17 at 17:59 Acetaminophen/ Hydrocodone Bitart ([place] (10/325)) 1 tab Q4H PRN PO PAIN LEVEL 1-5 Last administered on 03/26/17 10:27; Admin Dose 1 TAB; Start 03/25/17 at 09 :30 Docusate Sodium (Colace) 100 mg BID PO ; Start 03/26/17 at 21:00 Magnesium Hydroxide (Milk Of Mag) 30 ml BID PRN PO CONSTIPATION Last administered on 03/26/17 13:48; Admin Dose 30 ML; Start 03/26/17 at 12:30 SHON ALBRIGHT Mar 26, 2017 14:39
[2017-03-26 15:00] VITALS: BP 118/72; RESP 19
[2017-03-26 19:42] VITALS: BP 122/58; RESP 16
[2017-03-26] MEDS: DOCUSATE SODIUM 100 MG CAP PO SCH (20:33)
[2017-03-26] MEDS: traZODone 100 MG TAB PO SCH (20:33)
[2017-03-26] MEDS: KETOROLAC 30 MG INJ IM PRN (21:16)
[2017-03-27] MEDS: HYDROmorphONE 1 MG/ML SYG IV PRN ×3 (00:27→06:31)
[2017-03-27 01:37] VITALS: BP 113/60; RESP 16
[2017-03-27 05:16] LABS: BASOPHILS % 0.2 % (0.0-2.0); EOSINOPHILS # 0.1 10^3/ul (0.0-0.5); EOSINOPHILS % 0.9 % (0.0-7.0); HEMATOCRIT 32.1 % (42.0-52.0); HEMOGLOBIN 10.8 g/dl (14.0-18.0); LYMPHOCYTES # 1.1 10^3/ul (0.8-2.9); MEAN CORPUSCULAR HEMOGLOBIN 27.1 pg (29.0-33.0); MEAN CORPUSCULAR HGB CONC 33.6 g/dl (32.0-37.0); MEAN CORPUSCULAR VOLUME 80.7 fl (82.0-101.0); MEAN PLATELET VOLUME 10.9 fl (7.4-10.4); MONOCYTE # 0.9 10^3/ul (0.3-0.9); MONOCYTES % 7.8 % (0.0-11.0); NEUTROPHIL # 8.9 10^3/ul (1.6-7.5); NEUTROPHILS % 80.7 % (39.0-77.0); PLATELET COUNT 197 10^3/UL (140-415); RED BLOOD COUNT 3.98 10^6/ul (4.70-6.10); RED CELL DISTRIBUTION WIDTH 14.2 % (11.5-14.5)
[2017-03-27 05:47] LABS: CALCIUM 8.5 mg/dl (8.4-10.2); CREATININE 0.87 mg/dl (0.61-1.24); POTASSIUM 3.4 mmol/L (3.5-5.1)
[2017-03-27] MEDS: MAGNESIUM HYDROXIDE 30ML CUP PO PRN (06:31)
[2017-03-27 07:33] VITALS: BP 91/58; RESP 18
[2017-03-27] MEDS: HYDROCODONE/APAP (10/325) TAB PO PRN (07:48)
[2017-03-27] MEDS: DOCUSATE SODIUM 100 MG CAP PO SCH (08:29)
[2017-03-27] MEDS: NICOTINE (21 MG/24 HR) PATCH TRANSDERM SCH (08:29)
[2017-03-27] MEDS: oxyCODONE 15 MG TAB PO PRN ×2 (09:05→12:39)
[2017-03-27 09:41] VITALS: BP 123/56; PULSE 83; RESP 18
[2017-03-27] MEDS ORDERED: NICO1PAT6 TRANSDERM (13:51)
[2017-03-27] MEDS ORDERED: POTASSIUM CHLORIDE 20 MEQ POWDER FOR ORAL SOLN PO ONE (14:00)
--- NOTE | 2017-03-28 11:15 | DS ---
Date/Time of Note Date/Time of Note DATE: 03/28/17 TIME: 11:12 Discharge Summary Admission/Discharge Info Admit Date/Time Mar 23, 2017 at 11:23 Discharge Date/Time Mar 27, 2017 at 14:25 Patient Condition: Stable Hx of Present Illness Patient is a 46-year-old gentleman with obesity tobacco dependence and degenerative disc disease of lumbar sac sacral spine. Patient failed conservative management and was evaluated by Dr. Colorado in neurosurgery consultation. Patient was brought to the hospital for surgery. Hospital Course Patient is able to walk in the hallway with physical therapy, pain is well controlled. Patient complains of constipation, started on bowel regimen. Assessment/Plan -Degenerative disk disease of lumbosacral spine. S/p anterior retroperitoneal exposure and interbody fusion L3-S1 Dr. Bhatti on 03/23. S/p Posterior L3-S1 ISF Placement by Dr. [place] on 03/24. Continue Tiger and Dilaudid for pain. Continue physical therapy. -Hypertension, patient is currently normotensive -Obesity with BMI of 32 -Smoker, cessation is strongly advised Further recommendations based on clinical course. Plan of care discussed with Dr. Barrios [facility] Active Scripts Nicotine* (Nicotine* Patch) 21 mg/day Patch, 1 PATCH TRANSDERM DAILY for 30 Days Prov:ANTONIO ALBRIGHTA 03/27/17 Reported Medications Oxycodone Hcl* (IR) (Oxycodone Hcl*) 15 Mg Tablet, 15 MG PO Q4H Y for PAIN, TAB 03/22/17 Amlodipine Besylate* (Amlodipine Besylate*) 10 Mg Tablet, 10 MG PO DAILY, #30 TAB 03/22/17 Duloxetine Hcl* (Cymbalta*) 60 Mg Capsule.dr, 90 MG PO DAILY, CAP 03/22/17 Pravastatin Sodium* (Pravastatin Sodium*) 40 Mg Tablet, 40 MG PO HS, TAB 03/22/17 Trazodone Hcl* (Trazodone Hcl*) 300 Mg Tablet, 200 MG PO QHS, #30 TAB 03/22/17 Aripiprazole* (Abilify*) 15 Mg Tablet, 15 MG PO DAILY, #30 TAB 03/22/17 Follow-up Plan Follow-up with Dr. Colorado in 2 weeks Primary Care Provider Arabella Davidson Time spent on discharge: > 30 minutes Pending Labs Laboratory Tests Test 03/28/17 10:16 Lab Scanned Report REFERENCE [id number] SHON ALBRIGHT Mar 28, 2017 11:15
== END 2017-03-27 14:25 | disposition home or self-care (01) | DRG 455 ==
LOC: REC 11:23 → ICU 19:44 → MS1 03-25 14:05
PROVIDERS: ADMIT Neurological Surgery; ATTEND Neurological Surgery
PROC: 0SG10K1 Fusion of 2 or more Lumbar Vertebral Joints with Nonautologous Tissue Substitute, Posterior Approach, Posterior Column, Open Approach (ICD-10-PCS; 2017-03-24)
PROC: 0SG30AJ Fusion of Lumbosacral Joint with Interbody Fusion Device, Posterior Approach, Anterior Column, Open Approach (ICD-10-PCS; 2017-03-24)
PROC: 0SG30A0 Fusion of Lumbosacral Joint with Interbody Fusion Device, Anterior Approach, Anterior Column, Open Approach (ICD-10-PCS; 2017-03-24)
PROC: 0SG10A0 Fusion of 2 or more Lumbar Vertebral Joints with Interbody Fusion Device, Anterior Approach, Anterior Column, Open Approach (ICD-10-PCS; principal; 2017-03-24 07:30)
DX: M51.17 Intervertebral disc disorders with radiculopathy, lumbosacral region (principal); E66.01 Morbid (severe) obesity due to excess calories; I10 Essential (primary) hypertension; M47.27 Other spondylosis with radiculopathy, lumbosacral region; Z68.32 Body mass index [BMI] 32.0-32.9, adult; Z72.0 Tobacco use; E88.2 Lipomatosis, not elsewhere classified
CPT/HCPCS: 72100; 72114; 72131; 80048; 80053; 85014; 85018; 85025; 85610; 86850; 86900; 86901; 86920; 87081; 88304; 97116; 97163; 97530; J1940; C1762; J0360; J0690; J1170; J1644; J1885; J2175; J2250; J2405; J2710; J2765; J2795; J3010; J3480; L0639